=== PATIENT | female | born 1985 | race Hispanic/Latino ===

== ENCOUNTER 2018-06-23 00:19 | Emergency (ER) | payer BC ==
[~2018-06-23] VITALS: Ht 144.8 cm; Wt 88.5 kg
[2018-06-23] MEDS ORDERED: HYDROCODONE/APAP 10MG-325MG TAB PO ONE (02:15)
[2018-06-23] MEDS ORDERED: KETOROLAC TROMETHAMINE 60 MG/2 ML VIAL IM ONE (02:15)
[2018-06-23 04:06] VITALS: BP 113/72
== END 2018-06-23 04:18 | disposition home or self-care (01) ==
LOC: ER 00:19
DX: K08.89 Other specified disorders of teeth and supporting structures (principal); E11.9 Type 2 diabetes mellitus without complications
CPT/HCPCS: 81025; 99283; J1885